=== PATIENT | male | born 1995 | race Caucasian/White ===

== ENCOUNTER 2024-05-02 06:17 | Day surgery (SDC) | payer BC, SELFPAY | END 2024-05-02 09:34 | disposition home or self-care (01) | LOC: GI 06:17 | PROVIDERS: ATTENDING PHYSICIAN Surgery | DX: K64.9 Unspecified hemorrhoids (principal); K62.5 Hemorrhage of anus and rectum; Z80.0 Family history of malignant neoplasm of digestive organs | CPT/HCPCS: 45378 ==

== ENCOUNTER 2024-05-08 06:33 | Day surgery (SDC) | payer BC, SELFPAY | END 2024-05-08 09:11 | disposition home or self-care (01) | LOC: GI 06:33 | PROVIDERS: ATTENDING PHYSICIAN Surgery | DX: K92.1 Melena (principal); K62.89 Other specified diseases of anus and rectum; K64.8 Other hemorrhoids | CPT/HCPCS: 45380; 88305; 88342 ==